=== PATIENT | female | born 1955 | race Caucasian/White ===

== ENCOUNTER 2018-05-05 06:15 | Outpatient (CLI) | payer MEDICAID ==
[~2018-05-05] VITALS: Ht 165.1 cm; Wt 72.7 kg
--- NOTE | ~2018-05-05 | HEMODYNAMI ---
PATIENT:MIGUEL CHRISTENSEN MEDICAL RECORD: [id number] : 55 LOCATION:[facility] ADMISSION DATE: 05/05/18 Generatedon:05/05/20189:15 Patient name: MIGUEL CHRISTENSEN Patient #: [id number] SSN: : 1955 Date of study: 05/05/2018 Page: Of Hemodynamic Procedure Report Patient Data Patient Demographics Procedure consent was obtained First Name: MIGUEL Gender: Female Last Name: AMPARO : 1955 [facility] Initial: SEBASTIAN Age: 62 year(s) Patient #: [id number] Race: Unknown Additional ID: [id number] Contact details [address]: [address] [place] [address] State: [place] City: [place] Zip code: [address] Past Medical History Allergies Allergen Reaction Date Comments Reported Other allergy 05/05/2018 VYTORIN Admission Admission Data Admission Date: 05/05/2018 Admission Time: 6:15 Procedure Procedure Types Cath Procedure Diagnostic Procedure C [facility] w/Coronaries Sedation Charges Moderate Sedation up to 15 minutes PCI Procedure Coronary Stent Coronary Stent Initial Procedure Description Procedure Date Procedure Date: 05/05/2018 Procedure Start Time: 8:33 Procedure End Time: 9:11 Procedure Staff Name Function Blu Godinez MD Performing Physician Chava Tello RN Nurse Jennifer Saul RT Scrub Luz Babb RT Monitor Procedure Data Cath Procedure Fluoroscopy Diagnostic fluoroscopy Total fluoroscopy Time: 7.9 time: 7.9 min min Diagnostic fluoroscopy Total fluoroscopy dose: 912 dose: 912 mGy mGy Contrast Material Contrast Material Type Amount (ml) Isovue 300 134 Entry Location Entry Primary Successful Side Size Upsize Upsize Entry Closure Franco ccessful Closure Location (Fr) 1 (Fr) 2 (Fr) Remarks Device Remarks Radial Right 6 Fr Mechanical tr artery Short Compression Estimated blood loss: 10 ml Diagnostic catheters Device Type Used For End Catheter Placement DIAGNOSTIC Talmage 110cm 5 Procedure Fr catheter ([id number]) Procedure Complications No complications Procedure Medications Medication Administration Route Dosage Oxygen etCO2 Nasal cannula 2 l/min Heparin Flush Bag added to field 2 bags (1000units/500ml NS) 0.9% NaCl I.V. 100 ml/hr Radial Cocktail added to field 1 syringe (Verapomil 2mg/Nitro 400mcg/Heparin 1500units) Fentanyl I.V. 50 mcg Versed I.V. 1 mg Fentanyl I.V. 50 mcg Versed I.V. 1 mg Fentanyl I.V. 50 mcg Radial Cocktail I.A. 1 syringe (Verapomil 2mg/Nitro 400mcg/Heparin 1500units) Fentanyl I.V. 50 mcg Heparin Bolus I.V. 7000 units Versed I.V. 1 mg Nitroglycerin IC/IA I.C. 100 mcg Versed I.V. 1 mg Brilinta P.O. 180 mg Hemodynamics Rest Heart Rate: 54 (bpm) Pressure Samples Time Site Value (mmHg) Purpose Heart Use Rate(bpm) 8:40 LV 108/-4,12 Snapshot 53 Gradients Valve Time Site Site Mean SEP/DFP Peak To Heart Use 1 2 (mmHg) (sec/min) Peak Rate (mmHg) (bpm) Aortic 8:41 LV AO 71 Snapshots Pre Cath Intra NCS Post Cath Vital Signs Time Heart Resp SPO2 etCO2 NIBP (mmHg) Rhythm Pain Sedation Rate (ipm) (%) (mmHg) Status Level (bpm) 8:15:09 53 16 99 0 169/79(107) NSR 0 (11) 10(A) , No pain 8:23:35 51 16 100 35.3 149/72(95) NSR 0 (11) 10(A) , No pain 8:27:55 52 16 98 39.8 147/69(124) NSR 0 (11) 10(A) , No pain 8:32:07 49 16 96 39.8 133/66(110) NSR 0 (11) 10(A) , No pain 8:36:17 51 16 98 25.5 139/74(122) NSR 0 (11) 10(A) , No pain 8:40:23 67 17 92 24.8 100/63(78) NSR 0 (11) 9(A) , No pain 8:44:26 54 17 91 30.8 105/60(89) NSR 0 (11) 9(A) , No pain 8:48:34 50 16 94 35.3 103/54(84) NSR 0 (11) 9(A) , No pain 8:52:40 49 16 96 34.5 104/58(76) NSR 0 (11) 9(A) , No pain 8:56:48 52 16 96 43.6 107/56(74) NSR 0 (11) 9(A) , No pain 9:00:53 52 17 95 42 109/61(79) NSR 0 (11) 9(A) , No pain 9:05:01 52 17 96 44.3 100/58(85) NSR 0 (11) 9(A) , No pain 9:09:07 50 16 95 40.5 102/58(84) NSR 0 (11) 10(A) , No pain 9:14:43 50 16 98 40.6 112/58(78) NSR 0 (11) 10(A) , No pain Medications Time Medication Route Dose Verified Delivered Reason Note s Effectiveness by by 8:16:37 Oxygen etCO2 2 l/min Blu Chava Per physician Nasal Herbert Tello RN cannula 8:16:45 Heparin Flush added 2 bags Blu Chava used for Bag to Herbert Tello RN procedure (1000units/500ml field NS) 8:16:53 0.9% NaCl I.V. 100 Blu Chava Per physician ml/hr Herbert Tello RN 8:17:01 Radial Cocktail added 1 Blu Chava used for (Verapomil to syringe Herbert Tello ultrasound technol 2mg/Nitro field 400mcg/Heparin 1500units) 8:26:13 Fentanyl I.V. 50 mcg Blu Chava for sedation Herbert Tello RN 8:26:19 Versed I.V. 1 mg Blu Chava for sedation Herbert Tello RN 8:34:58 Fentanyl I.V. 50 mcg Blu Chava for sedation Herbert Tello RN 8:35:00 Versed I.V. 1 mg Blu Chava for sedation Herbert Tello RN 8:37:19 Fentanyl I.V. 50 mcg Blu Chava for sedation Herbert Tello RN 8:40:03 Radial Cocktail I.A. 1 Blu Blu for (Verapomil syringe Herbert Godinez MD vasodilation 2mg/Nitro 400mcg/Heparin 1500units) 8:40:08 Fentanyl I.V. 50 mcg Blu Chava for sedation Herbert Tello RN 8:51:04 Heparin Bolus I.V. 7000 Blu Chava for units Herbert Tello RN anticoagulation 8:51:44 Versed I.V. 1 mg Blu Chava for sedation Herbert Telol RN 9:05:21 Nitroglycerin I.C. 100 mcg Blu Blu for IC/IA Herbert Godinez MD vasodilation 9:05:27 Versed I.V. 1 mg Blu Chava for sedation Herbert Tello RN 9:13:39 Brilinta P.O. 180 mg Blu Chava for Herbert Tello RN antiplatelet therapy Procedure Log Time Note 7:54:27 Chava Tello RN sent for patient. Start room use. 8:04:27 Time tracking: Regular hours (M-F 7:00 - 5:00) 8:04:33 Plan of Care:Hemodynamics will remain stable., Cardiac rhythm will remain stable., Comfort level will be maintained., Respiratory function will remain adequate., Patient/ family verbilizes understanding of procedure., Procedure tolerated without complication., Recovers from procedure without complications.. 8:07:54 Patient received from Pre/Post Procedure Room to [facility] 2 Alert and oriented. Tansferred to table in Supine position. 8:07:56 Warm blankets applied, and norberto hugger turned on for patient comfort. 8:07:56 Correct patient and procedure confirmed by team. 8:07:58 Signed procedure consent form obtained from patient. 8:07:58 ECG and BP/O2 sat monitors applied to patient. 8:07:59 Full Disclosure recording started 8:10:15 H&P Date Dictated: 04/04/2018 Within 30 days and on chart., H&P Addendum completed by physician on day of procedure. (MUST COMPLETE FOR ALL OUTPATIENTS). 8:10:17 Pre-procedure instructions explained to patient. 8:10:18 Pre-op teaching completed and patient verbalized understanding. 8:10:22 Family in patients room. 8:10:24 Patient NPO since Midnight. 8:10:40 Patient allergic to Other allergyVYTORIN 8:11:03 Is the patient allergic to Iodine/contrast media? No. 8:11:06 Patient diabetic? No. 8:11:15 Previous problem with sedation/anesthesia? No ? 8:11:16 Snore? No 8:11:18 Sleep apnea? No 8:11:19 Deviated septum? No 8:11:20 Opens mouth fully? Yes 8:11:21 Sticks out tongue? Yes 8:11:22 Airway obstruction? No ? 8:11:26 Dentures? No ? 8:11:47 TAKES ASA DAILY 8:12:18 Modified Ryan's test Ulnar < 7 seconds 8:12:20 Patient pain scale 0/10 ?. 8:13:53 Vital chart was started 8:14:01 Rhythm: sinus bradycardia 8:14:13 Pre procedure: right dorsailis pedis pulse 2+ Normal; easily identifiable; not easily obliterated 8:14:20 IV patent on arrival in left antecubital with 0.9% NaCl at KVO. 8:14:25 Lab results completed and on chart. 8:14:36 Right Radial & Right Groin area was prepped with chlora-prep and draped in sterile fashion 8:14:37 Alarms reviewed by R. N. 8:14:37 Sharps counted by scrub and verified by R.N. 8:14:40 Use device set Radial Dx or PCI 8:14:40 ACIST Syringe (35326) opened to sterile field. 8:14:41 Medline Cath Pack ([id number]) opened to sterile field. 8:14:41 Bag Decanter (2002) opened to sterile field. 8:14:42 DIAGNOSTIC WIRE .035 260cm J wire (731893) opened to sterile field. 8:14:43 ACIST Hand Control (33199) opened to sterile field. 8:14:43 ACIST Manifold (97594) opened to sterile field. 8:14:45 MBrace Wrist Support ([id number]) opened to sterile field. 8:14:49 SHEATH 6Fr Prelude Radial ([id number]) opened to sterile field. 8:16:37 Oxygen 2 l/min etCO2 Nasal cannula was administered by Chava Tello RN; Per physician; 8:16:45 Heparin Flush Bag (1000units/500ml NS) 2 bags added to field was administered by Chava Tello RN; used for procedure; 8:16:53 0.9% NaCl 100 ml/hr I.V. was administered by Chava Tello RN; Per physician; 8:17:01 Radial Cocktail (Verapomil 2mg/Nitro 400mcg/Heparin 1500units) 1 syringe added to field was administered by Chava Tello RN; used for procedure; 8:19:03 Baseline sample Acquired. 8:24:48 Physician arrived 8:24:49 --------ALL STOP TIME OUT------ 8:24:50 Final Timeout: patient, procedure, and site verified with staff and physician. All members of the team are in agreement. 8:24:53 Right Radial & Right Groin site verified by team. 8:24:58 Physical assessment completed. ASA score P 2 - A patient with mild systemic disease as per Blu Godinez MD. 8:25:02 Sedation plan: IV Moderate Sedation Medication:Versed, Fentanyl 8:25:42 Zero performed for pressure channel P1 8:25:49 Zero performed for pressure channel P1 8:26:13 Fentanyl 50 mcg I.V. was administered by Chava Tello RN; for sedation; 8:26:19 Versed 1 mg I.V. was administered by Chava Tello RN; for sedation; 8:33:46 Procedure started. 8:33:58 Local anesthetic to right radial artery with Lidocaine 2% by Blu Godinez MD.INITIAL ACCESS ONLY 8:34:58 Fentanyl 50 mcg I.V. was administered by Chava Tello RN; for sedation; 8:35:00 Versed 1 mg I.V. was administered by Chava Tello RN; for sedation; 8:37:19 Fentanyl 50 mcg I.V. was administered by Chava Tello RN; for sedation; 8:38:16 A 6 Fr Short sheath was inserted into the Right Radial artery 8:38:36 A DIAGNOSTIC Talmage 110cm 5 Fr catheter (910132) was advanced over the wire and used for Procedure. 8:40:03 Radial Cocktail (Verapomil 2mg/Nitro 400mcg/Heparin 1500units) 1 syringe I.A. was administered by Blu Godinez MD; for vasodilation; 8:40:08 Fentanyl 50 mcg I.V. was administered by Chava Tello RN; for sedation; 8:41:51 LCA angiography performed. 8:42:54 RCA angiography performed. 8:44:05 Catheter removed. 8:47:20 INFLATOR Merit BasixCompak (NC0028) opened to sterile field. 8:47:20 GUIDE 6FR XBLAD 3.5 catheter ([id number]) opened to sterile field. 8:47:21 TUBING High Pressure Extension Tubing (Godinez) ([id number]) opened to sterile field. 8:47:22 BMW 300cm Simms 2 J wire ([id number]) opened to sterile field. 8:47:25 Proceeding to intervention. 8:47:36 6 Fr xblad 3.5 guide catheter was inserted over the wire 8:50:49 BMW wire advanced. 8:51:04 Heparin Bolus 7000 units I.V. was administered by Chava Tello RN; for anticoagulation; 8:51:44 Versed 1 mg I.V. was administered by Chava Tello RN; for sedation; 8:54:07 Inflate balloon Inflation number: 1 A EUPHORA 2.0 x 20 Balloon ([id number]) was prepped and advanced across the Mid LAD, then inflated to 15 MILTON for 0:37 (min:sec). 8:57:00 Balloon removed over the wire. 8:59:59 Place stent Inflation Number: 2 A CLOVIS OTW 2.5 x 22 stent ([id number]) was prepped and advanced across the Mid LAD. The stent was deployed at 12 MILTON for 0:18 (min:sec). 9:00:41 Stent catheter was removed intact over wire. 9:05:21 Nitroglycerin IC/IA 100 mcg I.C. was administered by Blu Godinez MD; for vasodilation; 9:05:27 Versed 1 mg I.V. was administered by Chava Tello RN; for sedation; 9:07:56 Place stent Inflation Number: 3 A CLOVIS OTW 3.0 x 18 stent ([id number]) was prepped and advanced across the Mid LAD. The stent was deployed at 12 MILTON for 0:15 (min:sec). 9:09:16 TR BAND Standard ([id number]) opened to sterile field. 9:09:20 Stent catheter was removed intact over wire. 9:09:21 Wire removed. 9:09:22 Guide catheter removed. 9:09:33 Sheath removed intact; hemostasis achieved with Mechanical Compression to the Right Radial artery. 9:09:36 Procedure ended.(Physican Out) 9:09:50 Fluoroscopy time 07.90 minutes. 9::56 Fluoroscopy dose: 912 mGy 9::56 Flurop Dose total: 912 9:10:00 Contrast amount:Isovue 300 134ml. 9:10:02 Sharps counted by scrub and verified by R.N. 9:10:18 TR band inflated with 10cc of air. 9:10:20 Insertion/operative site no bleeding no hematoma. 9:10:24 Post Procedure Pulses reassessed and unchanged 9:10:29 Post-procedure physical assessment completed. ASA score P 2 - A patient with mild systemic disease as per Blu Godinez MD. 9:10:32 Post procedure rhythm: unchanged. 9:10:35 Estimated blood loss: 10 ml 9:10:45 Post procedure instruction explained to patient.Patient verbalizes understanding. 9:11:01 Procedure type changed to Cath procedure, Diagnostic procedure, LHC, LHC w/Coronaries, Sedation Charges, Moderate Sedation up to 15 minutes, PCI procedure, Coronary Stent, Coronary Stent Initial 9:11:03 Procedure and supply charges have been captured, reviewed, submitted and are correct. 9:11:22 Procedure Complication : No complications 9:11:25 Vital chart was stopped 9:11:26 See physician's report for complete and final results. 9:11:27 Report given to Pre/Post Procedure Room. 9:11:31 Patient transfered to Pre/Post Procedure Room with Stretcher. 9:11:34 Procedure ended. 9:11:34 Full Disclosure recording stopped 9:11:42 End room use (Document Last) 9:13:39 Brilinta 180 mg P.O. was administered by Chava Tello RN; for antiplatelet therapy; Intervention Summary Intervention Notes Time ActionType Lesion and Equipment Action# Pressure Duration Attributes Used 8:54:07 Inflate Mid LAD EUPHORA 2.0 x 1 15 00:37 balloon 20 Balloon ([id number]) 8:59:59 Place stent Mid LAD CLOVIS OTW 2.5 2 12 00:18 x 22 stent ([id number]) 9:07:56 Place stent Mid LAD CLOVIS OTW 3.0 3 12 00:15 x 18 stent ([id number]) Device Usage Item Name Manufacture Quantity Catalog Number Hospital Part Current Minimal Lot# / Charge Number Stock Stock Serial# Code ACIST Syringe Acist 1 17785 913944 510278 217302 20 (67219) Medical Systems Inc Medline Cath Cardinal 1 [id number] 833616 99310 043751 5 Pack Health ([id number]) Bag Decanter Microtek 1 2001S 367484 87658 452432 5 () Medical Inc. DIAGNOSTIC WIRE [place] 1 945779 075525 482067 015094 30 .035 260cm J wire (254093) ACIST Hand Acist 1 59984 808241 080105 279797 5 Control (98503) Medical Systems Capseo ACIST Manifold Acist 1 15313 304332 229982 667406 5 (28649) Medical Systems Inc MBrace Wrist Advanced 1 140-0250-00 642714 92277 416870 5 Support Vascular (767498048) Dynamics SHEATH 6Fr Merit 1 [id number] 627313 686271 008149 5 Prelude Radial Medical ([id number]) DIAGNOSTIC Terumo 1 40-3529 139030 357346 535431 5 Talmage 110cm 5 Fr catheter (193239) INFLATOR Merit Merit 1 VT6953 841008 401850 437476 15 BasixComndk Medical (UP0790) GUIDE 6FR XBLAD Cardinal 1 [id number] 104848 848040 612392 10 3.5 catheter Health (76068882) TUBING High Merit 1 [id number] 170594 79872 863533 10 Pressure Medical Extension Tubing (Godinez) (ZK4139Q) BMW 300cm Campos 1 [id number] 185771 371232 578394 5 Simms 2 J Vascular wire (4013653U) EUPHORA 2.0 x Medtronic 1 [id number] 393417 283895 105460 5 [id number] 20 Balloon ([id number]) CLOVIS OTW 2.5 x Medtronic 1 [id number] 125709 19511 953160 5 [id number] 22 stent ([id number]) CLOVIS OTW 3.0 x Medtronic 1 [id number] 224209 8759573 723058 5 [id number] 18 stent ([id number]) TR BAND Terum 1 [id number] 281033 560842 463410 40 Standard ([id number]) Signature Audit [place] Stage Time Signature Unsigned Intra-Procedure 05/05/2018 Luz Babb 9:15:20 AM RT(R) Signatures Monitor : Luz Babb Signature : RT Date : Time : [place] [id number] [place] [id number]
[2018-05-05] MEDS ORDERED: ZOCOR20 MG PO (06:58)
[2018-05-05] MEDS ORDERED: ZANAFLEX4 MG PO (06:59)
[2018-05-05] MEDS ORDERED: FUROSEMIDE20 MG PO (06:59)
[2018-05-05] MEDS ORDERED: LOPRESSOR25 MG PO (06:59)
[2018-05-05] MEDS ORDERED: NORCO 10-325 TA1 TAB PO (06:59)
[2018-05-05 07:05] VITALS: BP 156/88; Ht 165.1 cm; Wt 72.7 kg
[2018-05-05 07:28] LABS: BASOPHILS 1.1 % (0-2); EOSINOPHILS 3.1 % (0-7); HEMATOCRIT 35.9 % (36.0-48.0); HEMOGLOBIN 12.1 g/dL (12-16); IMMATURE GRANULOCYTES 0.2 % (0-5); LYMPHOCYTES 34.2 % (15-50); MCH 30.9 pg (26.0-34.0); MCHC 33.7 g/dL (31.0-37.0); MCV 91.8 fL (80.0-100.0); MEAN PLATELET VOLUME 10.7 fL (7.4-10.4); NEUTROPHILS 50.4 % (40-80); PLATELET COUNT 194 10x3/uL (130-400); RBC 3.91 10x6/uL (4.00-5.40); RDW 13.8 % (11.5-14.5); WBC 5.6 10x3/uL (4.8-10.8)
[2018-05-05 07:40] LABS: CALC OSMOLALITY 276 mosm/kg (275-300); CALCIUM 8.4 mg/dL (8.5-10.1); CARBON DIOXIDE 27.4 mmol/L (21.0-32.0); CHLORIDE - SERUM 106 mmol/L (98-107); CREATININE - SERUM 0.7 mg/dL (0.6-1.3); GLUCOSE 80 mg/dL (74-106); SODIUM 140 mmol/L (136-145); UREA NITROGEN 10 mg/dL (7-18); eGFR NON AFRICAN AMERICAN 90 mL/min (90-120)
[2018-05-05 07:44] LABS: POTASSIUM - SERUM 4.5 mmol/L (3.5-5.1)
[2018-05-05] MEDS ORDERED: BRILINTA90 MG PO (09:21)
[2018-05-05] MEDS ORDERED: BAYER CHEWABLE81 MG PO (09:22)
== END 2018-05-05 14:50 | disposition home or self-care (01) ==
LOC: D.CATH 06:15
PROVIDERS: Internal Medicine Cardiovascular Disease
DX: I25.110 Atherosclerotic heart disease of native coronary artery with unstable angina pectoris (principal); R94.39 Abnormal result of other cardiovascular function study